=== PATIENT | female | born 1950 | race Two or more races ===

== ENCOUNTER 2022-12-23 07:13 | Outpatient (CLI) | payer OTHER | END 2022-12-23 07:21 | disposition home or self-care (01) | LOC: SONOGRAMA 07:13 | DX: R10.13 Epigastric pain (principal); N85.9 Noninflammatory disorder of uterus, unspecified; K75.9 Inflammatory liver disease, unspecified; N39.0 Urinary tract infection, site not specified ==

== ENCOUNTER 2023-06-02 10:11 | Outpatient (CLI) | payer OTHER | END 2023-06-02 10:12 | disposition home or self-care (01) | LOC: NUCLEAR 10:11 | DX: M81.0 Age-related osteoporosis without current pathological fracture (principal) ==